=== PATIENT | male | born 2000 | race Caucasian/White ===

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

== ENCOUNTER 2023-10-24 16:59 | Emergency (ER) | payer SELFPAY ==
--- NOTE | 2023-10-24 18:18 | RAD REPORT ---
EXAM DESCRIPTION: CT - [id number] - 10/24/2023 6:05 pm CLINICAL HISTORY: HEADACHE COMPARISON: Head C Spine Mpr Wo Con dated 03/10/2023 TECHNIQUE: Axial 5 mm thick images of the head were obtained. Axial 2 mm thick images of the cervical spine were obtained with sagittal and coronal reconstruction images generated and reviewed. All CT scans are performed using dose optimization technique as appropriate and may include automated exposure control or mA/KV adjustment according to patient size. FINDINGS: CT HEAD WITHOUT CONTRAST: No acute hemorrhage, hydrocephalus or extra-axial collection is identified.No areas of brain edema or midline shift. Low-lying cerebellar tonsils . The paranasal sinuses and mastoids are clear.The calvarium is intact. CT CERVICAL SPINE WITHOUT CONTRAST: No fracture or subluxation.No prevertebral soft tissues swelling is identified. IMPRESSION: No acute intracranial or cervical spine findings.
--- NOTE | 2023-10-24 18:23 | EDPHYS ---
Physician Documentation [facility] Name: Audi Kulkarni Age: 23 yrs Sex: Male : 2000 Arrival Date: 10/24/2023 Time: 16:59 Bed 16 Private MD: ED Physician Khoa Arredondo HPI: 10/23 17:55 This 23 yrs old Male presents to ER via Ambulatory with complaints of Head Injury pepe Without LOC-Adult. 17:55 The patient or guardian reports swelling, tenderness. The complaints affect the top of pepe head, left frontal area and right frontal area. Context of injury: The problem was sustained at work, resulted from a direct blow. Onset: The symptoms/episode began/occurred just prior to arrival, today. Associated signs and symptoms: The patient has no apparent associated signs or symptoms, Loss of consciousness: This patient did not experience any loss of consciousness. Severity of symptoms: At their worst the symptoms were mild, in the emergency department the symptoms are unchanged. The patient has not experienced similar symptoms in the past. Historical: - Allergies: 17:24 Flagyl; db 17:24 Robitussin Cough \T\ Cold CF; db - PMHx: 17:10 None; db - PSHx: 17:24 torn ACL's repair; db - Immunization history:: Adult Immunizations unknown. - Infectious Disease History:: Denies. - Social history:: Smoking status: Patient denies any tobacco usage or history of. - Family history:: not pertinent. ROS: 17:55 Constitutional: Negative for fever, chills, and weight loss, Eyes: Negative for injury, pepe pain, redness, and discharge, ENT: Negative for injury, pain, and discharge, Neck: Negative for injury, pain, and swelling, Cardiovascular: Negative for chest pain, palpitations, and edema, Respiratory: Negative for shortness of breath, cough, wheezing, and pleuritic chest pain, Abdomen/GI: Negative for abdominal pain, nausea, vomiting, diarrhea, and constipation, Back: Negative for injury and pain, : Negative for injury, bleeding, discharge, and swelling, MS/Extremity: Negative for injury and deformity, Skin: Negative for injury, rash, and discoloration, Psych: Negative for depression, anxiety, suicide ideation, homicidal ideation, and hallucinations, Allergy/Immunology: Negative for hives, rash, and allergies, Endocrine: Negative for neck swelling, polydipsia, polyuria, polyphagia, and marked weight changes, Hematologic/Lymphatic: Negative for swollen nodes, abnormal bleeding, and unusual bruising, 17:55 Neuro: Positive for headache, of the top of head, left frontal area and right frontal area, Exam: 17:55 Constitutional: This is a well developed, well nourished patient who is awake, alert, pepe and in no acute distress. Eyes: Pupils equal round and reactive to light, extra-ocular motions intact. Lids and lashes normal. Conjunctiva and sclera are non-icteric and not injected. Cornea within normal limits. Periorbital areas with no swelling, redness, or edema. ENT: Nares patent. No nasal discharge, no septal abnormalities noted. Tympanic membranes are normal and external auditory canals are clear. Oropharynx with no redness, swelling, or masses, exudates, or evidence of obstruction, uvula midline. Mucous membranes moist. Neck: Trachea midline, no thyromegaly or masses palpated, and no cervical lymphadenopathy. Supple, full range of motion without nuchal rigidity, or vertebral point tenderness. No Meningismus. Chest/axilla: Normal chest wall appearance and motion. Nontender with no deformity. No lesions are appreciated. Cardiovascular: Regular rate and rhythm with a normal S1 and S2. No gallops, murmurs, or rubs. Normal PMI, no JVD. No pulse deficits. Respiratory: Lungs have equal breath sounds bilaterally, clear to auscultation and percussion. No rales, rhonchi or wheezes noted. No increased work of breathing, no retractions or nasal flaring. Abdomen/GI: Soft, non-tender, with normal bowel sounds. No distension or tympany. No guarding or rebound. No evidence of tenderness throughout. Back: No spinal tenderness. No costovertebral tenderness. Full range of motion. Skin: Warm, dry with normal turgor. Normal color with no rashes, no lesions, and no evidence of cellulitis. MS/ Extremity: Pulses equal, no cyanosis. Neurovascular intact. Full, normal range of motion. Neuro: Awake and alert, GCS 15, oriented to person, place, time, and situation. Cranial nerves II-XII grossly intact. Motor strength 5/5 in all extremities. Sensory grossly intact. Cerebellar exam normal. Normal gait. Psych: Awake, alert, with orientation to person, place and time. Behavior, mood, and affect are within normal limits. 17:55 Head/face: Noted is contusion, hematoma, swelling, that is moderate, of the top of head, left frontal area and right frontal area, Vital Signs: 17:05 BP 131 / 80; Pulse 100; Resp 16; Temp 98.1; Pulse Ox 98% ; Weight 165.56 kg; Height 6 db ft. 1 in. ; 17:30 BP 122 / 99; Pulse 75; Resp 16; Pulse Ox 98% on R/A; db 17:05 Body Mass Index 48.16 (165.56 kg, 185.42 cm) db [place] Coma Score: 17:55 Eye Response: spontaneous(4). Motor Response: obeys commands(6). Verbal Response: pepe oriented(5). Total: 15. 17:57 Eye Response: spontaneous(4). Motor Response: obeys commands(6). Verbal Response: pepe oriented(5). Total: 15. MDM: 17:08 Patient medically screened. pepe 17:57 Differential diagnosis: Contusion of Hematoma on head. Data reviewed: vital signs, pepe nurses notes, radiologic studies, CT scan. Consideration of Admission/Observation Escalation of care including admission/observation considered. I considered the following discharge prescriptions or medication management in the emergency department Medications were administered in the Emergency Department. See MAR. Test considered but Not performed: Labs: no labs. 10/23 17:35 Order name: CT Head C Spine; Complete Time: 18:20 pepe 10/23 17:35 Order name: Ice pack; Complete Time: 17:54 pepe Administered Medications: No medications were administered Disposition Summary: 10/24/23 18:22 Discharge Ordered Notes: Location: Home pepe Problem: new pepe Symptoms: have improved pepe Condition: Stable pepe Diagnosis - Unspecified injury of head, initial encounter pepe Followup: pepe - With: Private Physician - When: 2 - 3 days - Reason: Recheck today's complaints, Continuance of care, Re-evaluation by your physician Followup: pepe - With: Jordan Felix MD - When: 2 - 3 days - Reason: Recheck today's complaints, Re-evaluation by your physician Discharge Instructions: - Discharge Summary Sheet pepe - Contusion pepe - Head Injury, Adult pepe - Contusion, [id number] pepe - Head Injury, Adult, [id number] pepe Forms: - Medication Reconciliation Form pepe - Antibiotic Education pepe - Prescription Opioid Use pepe - Patient Portal Instructions pepe - Leadership Thank You Letter pepe - Work release form db Prescriptions: - Ibuprofen 600 mg Oral tablet - take 1 tablet ORAL route every 6 hours As needed take with food; 20 tablet; [facility] Refills: 0, Product Selection Permitted Signatures: Dispatcher [employer] EDKhoa Ramos MD MD cha Benton, Danielle, RN RN db
--- NOTE | 2023-10-24 18:23 | ER ---
Nurse's Notes [facility] Name: Audi Kulkarni Age: 23 yrs Sex: Male : 2000 Arrival Date: 10/24/2023 Time: 16:59 Bed 16 Private MD: Diagnosis: Unspecified injury of head, initial encounter Presentation: 10/23 17:05 Chief complaint: Chief complaint: Patient states: STATES OBJECT FELL ON HEAD AT WORK. db STATES WAS APPROXIMATELY 4 LBS. DENIES LOC. 17:05 Coronavirus screen: Vaccine status: At this time, the client does not indicate any db symptoms associated with coronavirus-19. Ebola Screen: Patient negative for fever greater than or equal to 101.5 degrees Fahrenheit, and additional compatible Ebola Virus Disease symptoms Patient denies exposure to infectious person. Patient denies travel to an Ebola-affected area in the 21 days before illness onset. No symptoms or risks identified at this time. Initial Sepsis Screen: Does the patient meet any 2 criteria? No. Patient's initial sepsis screen is negative. Does the patient have a suspected source of infection? No. Patient's initial sepsis screen is negative. Risk Assessment: Do you want to hurt yourself or someone else? Patient reports no desire to harm self or others. Onset of symptoms was October 24, 2023. 17:05 Method Of Arrival: Ambulatory db 17:05 Acuity: MARLON 4 db Triage Assessment: 17:10 General: Appears in no apparent distress. comfortable, Behavior is calm, cooperative. db Pain: Complains of pain in head and scalp. Neuro: Level of Consciousness is awake, alert, obeys commands, Oriented to person, place, time, situation, Pupils are PERRLA. Cardiovascular: No deficits noted. Respiratory: Airway is patent Respiratory effort is even, unlabored, Respiratory pattern is regular, symmetrical. GI: No deficits noted. No signs and/or symptoms were reported involving the gastrointestinal system. : No deficits noted. No signs and/or symptoms were reported regarding the genitourinary system. Derm: No deficits noted. No signs and/or symptoms reported regarding the dermatologic system. Historical: - Allergies: 17:24 Flagyl; db 17:24 Robitussin Cough \T\ Cold CF; db - PMHx: 17:10 None; db - PSHx: 17:24 torn ACL's repair; db - Immunization history:: Adult Immunizations unknown. - Infectious Disease History:: Denies. - Social history:: Smoking status: Patient denies any tobacco usage or history of. - Family history:: not pertinent. Screenin:55 [facility] ED Fall Risk Assessment (Adult) History of falling in the last 3 months, db including since admission No falls in past 3 months (0 pts) Confusion or Disorientation No (0 pts) Intoxicated or Sedated No (0 pts) Impaired Gait No (0 pts) Mobility Assist Device Used No (0 pt) Altered Elimination No (0 pt) Score/Fall Risk Level 0 - 2 = Low Risk Oriented to surroundings, Maintained a safe environment. Abuse screen: Denies threats or abuse. Denies injuries from another. Nutritional screening: No deficits noted. Tuberculosis screening: No symptoms or risk factors identified. Assessment: 17:10 Reassessment: Patient appears in no apparent distress at this time. Patient and/or db family updated on plan of care and expected duration. Pain level reassessed. Patient is alert, oriented x 3, equal unlabored respirations, skin warm/dry/pink. SEE TRIAGE FOR INITIAL ASSESSMENT. 17:55 Reassessment: Patient appears in no apparent distress at this time. No changes from db previously documented assessment. Patient and/or family updated on plan of care and expected duration. Pain level reassessed. Patient is alert, oriented x 3, equal unlabored respirations, skin warm/dry/pink. 18:43 Reassessment: Patient appears in no apparent distress at this time. Patient and/or db family updated on plan of care and expected duration. Pain level reassessed. Patient is alert, oriented x 3, equal unlabored respirations, skin warm/dry/pink. Patient states feeling better. Patient states symptoms have improved. Vital Signs: 17:05 BP 131 / 80; Pulse 100; Resp 16; Temp 98.1; Pulse Ox 98% ; Weight 165.56 kg; Height 6 db ft. 1 in. ; 17:30 BP 122 / 99; Pulse 75; Resp 16; Pulse Ox 98% on R/A; db 17:05 Body Mass Index 48.16 (165.56 kg, 185.42 cm) db [place] Coma Score: 17:55 Eye Response: spontaneous(4). Motor Response: obeys commands(6). Verbal Response: pepe oriented(5). Total: 15. 17:57 Eye Response: spontaneous(4). Motor Response: obeys commands(6). Verbal Response: pepe oriented(5). Total: 15. ED Course: 17:03 Patient arrived in ED. mg5 17:08 Khoa Arredondo MD is Attending Physician. pepe 17:10 Arm band placed on Patient placed in an exam room. db 17:12 Eloies Potter, RN is Primary Nurse. db 17:24 Triage completed. db 17:54 Pulse ox on. NIBP on. Pillow given. Ice pack to injury. db 18:07 CT Head C Spine In Process Unspecified. EDMS 18:21 Jordan Felix MD is Referral Physician. pepe 18:43 Patient has correct armband on for positive identification. Bed in low position. Call db light in reach. Side rails up X 1. Provided Education on: DISCHARGE AND FOLLOWUP. 18:43 No provider procedures requiring assistance completed. Patient did not have IV access db during this emergency room visit. Administered Medications: No medications were administered Medication: 18:43 VIS not applicable for this client. db Outcome: 18:22 Discharge ordered by . pepe 18:43 Discharged to home ambulatory, db 18:43 Condition: stable 18:43 Discharge instructions given to patient, Instructed on discharge instructions, follow up and referral plans. Prescriptions given X 1, 18:44 Patient left the ED. db Signatures: Dispatcher [employer] EDNJ Khoa Arredondo MD MD cha Benton, Danielle, RN RN db Lacey Stallings mg5 Corrections: (The following items were deleted from the chart) 17:24 17:05 Chief complaint: db db
[2023-10-24 18:53] VITALS: TEMP 98.1; O2SAT 98
[2023-10-24 18:56] VITALS: BP 122/99
== END 2023-10-24 18:44 | disposition home or self-care (01) ==
LOC: ER 16:59
DX: S00.83XA Contusion of other part of head, initial encounter (principal)
CPT/HCPCS: 70450; 72125; 99283

== ENCOUNTER 2023-12-18 20:54 | Emergency (ER) | payer SELFPAY ==
--- OUTSIDE RECORDS SUMMARY | 2023-12-18 20:57 | XMS REPORT | Continuity of Care Document ---
Author Name Unknown Address [address] [facility] [address] [id number] [facility] thconnect Address [address] [facility] [address] [place] [address] Care Team Providers Care Machine Shop Helper Name Role Phone PCP, PATIENT DOES NOT HAVE A Primary Care Physic KIP Garland Attending Clinician Unavail able KIP KIRBY Attending Clinician Unavail able Kip Kirby MD Attending Clinician [phone] KIP KIRBY Admitting Clinician Unavail able Payers Payer Name Policy Type Policy Number Effective Date Expirati on Date Source [facility] [id number] 2023 00:00:00 Allergies, Adverse Reactions, Alerts Allergy Name Allergy Type Status Severity Reaction(s) Onset Date Inactive Date Treating Clinician Comments Source Metronid azole Propensi ty to adverse reaction s Active Hives 0 10-25 00:00: 00 [facility] Robituss in Cough Calmers Propensi ty to adverse reaction s Active Hives 0 - 00:00: 00 [facility] METRONID AZOLE DRUG INGREDI Active Hives 0 - 00:00: 00 [facility] ROBITUSS IN COUGH CALMERS DRUG Active Hives 0 10-25 00:00: 00 [facility] NO KNOWN ALLERGIE S Drug Class Active [facility] Social History Social Habit Start Date Stop Date Quantity Comments Source Sexual orientation U [facility] Sex assigned at 2000 00:00:00 2000 00:00:00 [facility] Smoking Status Start Date Stop Date Source Tobacco smoking consumption unknown [facility] Vital Signs Vital Name Observation Time Observation Value Comments Junior montoya Systolic blood pressure 2023-10-26 20:00:00 143 mm[Hg] [facility] Diastolic blood pressure 2023-10-26 20:00:00 78 mm[Hg] [facility] Heart rate 2023-10-26 20:00:00 89 /min [facility] Body temperature 2023-10-26 20:00:00 36.67 Lluvia [facility] Respiratory rate 2023-10-26 20:00:00 14 /min [facility] Oxygen saturation in Arterial blood by Pulse oximetry 2023-10-26 20:00:00 98 /min [facility] Body height 2023-10-26 18:24:[address] [facility] Body weight 2023-10-26 18:24:[address] [facility] BMI 2023-10-26 18:24:00 49.50 kg/m2 [facility] Procedures Procedure Date / Time Performed Performing Clinicia n Source CT HEAD WO CONTRAST 2023-10-26 19:31:02 Kip Kirby [facility] Encounters Start Date/Time End Date/Time Encounter Type Admission Type Attending Clinicians Care Facility Care Department Encounter ID Source 2023-10-26 13:27:00 2023-10-26 15:16:00 Emergency X KIP KIRBY [facility] ERT [id number] [facility] 2023-10-26 13:27:00 2023-10-26 15:16:00 Emergency Kip Kirby [facility] [id number] [facility] Results Test Description Test Time Test Comments Results Result Comments Source CT HEAD WO CONTRAST 19:47:54 CT HEAD WO CONTRAST HISTORY: Male 23 years Head trauma, abnormal mental status (Age 18-64y) COMPARISON: None TECHNIQUE: Routine CT head without contrast FINDINGS: The ventricles and cerebral sulci are normal in caliber and configuration.No hydrocephalus, midline shift or pathological extra-axial fluidcollection is present. The basal cisterns are unremarkable. No acute intracranial hemorrhage or mass effect is present. The patel-whitematter differentiation is preserved. No significant parenchymal attenuationabnormality is present. The calvarium and skull base are unremarkable. The mastoid air cells andvisualized paranasal air sinuses are clear. [facility] Notes Date/Time Note Provider Source 2023-10-26 15:15:18 Pt given printed and verbal discharge instructions regarding injury of head initial encounter and concussion without loc, encouraged hydration, Discussed ibuprofen and to take with food to avoid GI distress. Pt verbalized understanding of instructions, pt awake alert oriented, resp reg unlabored, skin w/d, color appropriate for race, moves all ext well,pt encouraged to follow up with pcp Advised to seek medical attention for new/prolonged/worsening of symptoms, No adverse reaction to meds given in ER noted upon discharge Awake, alert oriented, resp reg unlabored, skin w/d, pt leaving amb with steady gait, in no apparent distress, Loretta Elliott RN [facility] 2023-10-26 13:22:05 Patient arrived ambulatory c/oo of an object that fell on his head Thursday went to ER [facility] which cleared him and said if the pain did not get better to go to the ER. Complaining of pain on top of his head where the object landed. [facility] 2023-10-26 13:15:00 [facility] Emergency Department Note Patient Name: Terence Oviedo Date of : 2000 23 year old male Treatment Room: 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 No n/v. Reportedly seen at OSH but those records not available. History provided by: Patient Past Medical History/Immunizations: No past medical history on file. Tetanus received in last 5 years: No Childhood immunizations: Up-to-date Allergies: Allergies Allergen Reactions Flagyl [Metronidazole] Hives Robitussin Cough Calmers Hives Past Social History: Substance & Sexual Activity No substance use or sexual activity history on file. Past Surgical History: No past surgical history on file. Review of Systems: Review of Systems Constitutional: Negative for activity change, appetite change, chills, diaphoresis and fatigue. HENT: Negative for congestion, ear discharge, ear pain, facial swelling, mouth sores, sore throat, trouble swallowing and voice change. Eyes: Negative for photophobia, discharge, redness, itching and visual disturbance. Respiratory: Negative for apnea, cough, choking, chest tightness, shortness of breath, wheezing and stridor. Breasts: Negative for discharge and mass. Cardiovascular: Negative for chest pain, palpitations and leg swelling. Gastrointestinal: Negative for abdominal distention, constipation, diarrhea, nausea and vomiting. Genitourinary: Negative for bladder incontinence, dysuria, frequency, hematuria, flank pain and difficulty urinating. Musculoskeletal: Negative for arthralgias, back pain, gait problem, joint swelling, myalgias, neck pain and neck stiffness. Skin: Negative for color change, pallor, rash and wound. Neurological: Positive for headaches. Negative for dizziness, syncope, facial asymmetry, speech difficulty, weakness, light-headedness and numbness. Psychiatric/Behavioral: Negative for agitation, behavioral problems, confusion and self-injury. Hematological: Negative for adenopathy, cold intolerance and heat intolerance. Does not bruise/bleed easily. Endocrine: Negative for cold intolerance, heat intolerance, polydipsia and polyphagia. Physical Exam: ED Triage Vitals [10/26/23 1324] Weight 165.6 kg (365 lb) Actual or estimated Estimated by patient/family report Height 1.829 m (6') BP (!) 151/95 Pulse 94 Resp 16 Temp 37.1 ?C (98.8 ?F) Temp src SpO2 97 % Measured on Room air Physical Exam Constitutional: General: He is not in acute distress. Appearance: He is well-developed. He is not diaphoretic. HENT: Head: Normocephalic and atraumatic. Right Ear: External ear normal. Left Ear: External ear normal. Mouth/Throat: Pharynx: No oropharyngeal exudate. Eyes: General: No scleral icterus. Right eye: No discharge. Left eye: No discharge. Extraocular Movements: Extraocular movements intact. Conjunctiva/sclera: Conjunctivae normal. Pupils: Pupils are equal, round, and reactive to light. Neck: Thyroid: No thyromegaly. Trachea: No tracheal deviation. Cardiovascular: Rate and Rhythm: Normal rate and regular rhythm. Heart sounds: Normal heart sounds. Pulmonary: Effort: Pulmonary effort is normal. No respiratory distress. Breath sounds: Normal breath sounds. No stridor. No wheezing. Abdominal: General: Bowel sounds are normal. There is no distension. Palpations: Abdomen is soft. Tenderness: There is no abdominal tenderness. Musculoskeletal: General: No tenderness or deformity. Normal range of motion. Cervical back: Normal range of motion and neck supple. Lymphadenopathy: Cervical: No cervical adenopathy. Skin: General: Skin is warm and dry. Coloration: Skin is not pale. Findings: No erythema or rash. Neurological: Mental Status: He is alert and oriented to person, place, and time. Cranial Nerves: No cranial nerve deficit. Sensory: No sensory deficit. Motor: No abnormal muscle tone. Coordination: Coordination normal. Psychiatric: Behavior: Behavior normal. Thought Content: Thought content normal. Judgment: Judgment normal. Radiology: CT HEAD WO CONTRAST Final Result CT HEAD WO CONTRAST HISTORY: Male 23 years Head trauma, abnormal mental status (Age 18-64y) COMPARISON: None TECHNIQUE: Routine CT head without contrast FINDINGS: The ventricles and cerebral sulci are normal in caliber and configuration. No hydrocephalus, midline shift or pathological extra-axial fluid collection is present. The basal cisterns are unremarkable. No acute intracranial hemorrhage or mass effect is present. The patel-white matter differentiation is preserved. No significant parenchymal attenuation abnormality is present. The calvarium and skull base are unremarkable. The mastoid air cells and visualized paranasal air sinuses are clear. IMPRESSION Normal CT head Lab Results: Lab Results - No data to display EKG: If EKG completed, see Procedure Note. Orders and Treatments: Orders Placed This Encounter Procedures CT HEAD WO CONTRAST No orders of the defined types were placed in this encounter. First Provider Eval: ED Events Date/Time Event User Comments 10/26/23 1321 Medical Screening Begins KIP KIRBY MD -- 10/26/23 1321 First Provider Evaluation KIP KIRBY MD -- ED COURSE Diagnosis/Impression as of 10/26/23 1459 Injury of head, initial encounter Concussion without loss of consciousness, initial encounter Procedures: Procedures MDM: Medical Decision Making Minor head injury w/out external findings. Pt reports worsening symptoms so CT scan done, neg. No indication of ICH, skull fx, hydrocephalus. Possible mild TBI w/ supportive care indicated. D/w pt results, rec plan of care and f/u, and red flags for return Amount and/or Complexity of Data Reviewed Radiology: ordered. Flowsheet Documentation: Disposition/Condition: ED Disposition ED Disposition Disch - Home Condition Stable Comment -- Discharge Medications: Patient's Medications No medications on file Follow-up: Electronically signed by: Kip Kirby MD 10/26/23 1459 T [facility]
[2023-12-18] MEDS ORDERED: METOCLOPRAMIDE 10 MG/2mL INJ ONE (22:04)
[2023-12-18] MEDS ORDERED: KETOROLAC 30 MG/ML INJ ONE (22:04)
[2023-12-18] MEDS ORDERED: DIPHENHYDRAMINE 50 MG/ML VIAL ONE (22:04)
[2023-12-18 22:08] LABS: Absolute Basophils 0.1 K/uL (0-0.5); Absolute Eosinophils 0.1 K/uL (0-0.5); Absolute Lymphocytes (CBC) 2.6 K/uL (0.7-4.9); Absolute Monocytes 0.7 K/uL (0.1-1.3); Absolute Neutrophil 5.2 K/uL (1.8-8.0); Basophils % 0.7 % (0-1.3); Eosinophils % 1.3 % (0-4.4); Hematocrit 42.1 % (39.6-49.0); Hemoglobin 14.5 g/dL (13.6-17.9); Lymphocytes % 29.5 % (15.3-44.8); MCH 28.4 pg (27.0-35.0); MCHC 34.4 g/dL (32.0-36.0); MCV 82.4 fL (80-100); MPV 8.5 fL (7.6-11.3); Monocytes % 8.1 % (3.3-12.3); Neutrophils % 60.4 % (41.7-73.7); Nucleated Red Blood Cells % 0.3 % (0-0); Platelets 267 thou/uL (152-406); RBC Red Blood Cell Count 5.11 M/uL (4.33-5.43); Red Cell Distribution Width 13.5 % (12.1-15.2)
[2023-12-18 22:26] LABS: Anion Gap 7.8 mEq/L (5.0-15.0); Potassium 3.8 mEq/L (3.5-5.1); Troponin High Sensitivity 4.9 pg/mL (<58.9)
--- NOTE | 2023-12-18 22:30 | RAD REPORT ---
EXAM: CT brain without contrast HISTORY: Headache COMPARISON: October 2023 TECHNIQUE: Multiple contiguous axial images were obtained and a CT of the brain without contrast.. Sagittal and coronal reconstruction performed. Automated exposure control, adjustment of the mA and/or kV according to patient size, and/or iterative reconstruction. Unless otherwise specified, incidental f indings do not require dedicated imaging follow-u FINDINGS: An intracranial bleed is not seen Ventricles are normal caliber No extra-axial fluid collection noted No significant hypodensity within the brain Cerebellar tonsillar ectopia is present No fluid within the visualized sinuses or mastoids noted. IMPRESSION: Cerebellar tonsillar ectopia No acute intracranial abnormality noted. If the patient's symptoms persist MRI of the brain would be recommended.
--- NOTE | 2023-12-18 23:11 | RAD REPORT ---
EXAM DESCRIPTION: Chest Single View CLINICAL HISTORY: 23 years Male, htn TECHNIQUE: 1 view (Single frontal view of the chest) COMPARISON: None. FINDINGS: LINES AND TUBES: None. CARDIOVASCULAR STRUCTURES: Normal heart size. No pulmonary venous congestion. LUNGS: No confluent areas of acute consolidation. PLEURA: No layering pleural effusions. No pneumothorax. BONES: No acute osseous abnormality of the thorax. IMPRESSION: 1. No acute cardiopulmonary disease. Electronically signed by: Ac Spencer MD 12/18/2023 10:52 PM CDT N Due to temporary technical issues with the PACS/[employer] reporting system, reports are being lacie d by the in-house radiologist without review as a courtesy to ensure prompt reporting the interpreting radiologist is fully responsible for the content of the report. Transcribed Date/Time: 12/18/2023 11:11 PM
--- NOTE | 2023-12-18 23:48 | EDPHYS ---
Physician Documentation [facility] Name: Audi Kulkarni Age: 23 yrs Sex: Male : 2000 Arrival Date: 12/18/2023 Time: 20:54 Bed 15 Private MD: ED Physician Cameron Anguiano HPI: 12/18 02:03 This 23 yrs old Male presents to ER via Ambulatory with complaints of High Blood sb4 Pressure, Headache. 02:03 Patient reports headache for the past few days that is not improving with Tylenol or sb4 ibuprofen. He states that he has been more stressed than usual. States that one of his family members recommended he check his blood pressure today given his persistent headache and he noted it to be elevated- 160s/100s-and presented to the ED for further management. He denies any prior history/diagnosis of hypertension. Denies any dizziness, blurry vision, chest pain, or shortness of. Historical: - Allergies: 12/17 21:27 Flagyl; tm6 21:27 Robitussin Cough \T\ Cold CF; tm6 - Home Meds: 21:27 None [Active]; tm6 - PSHx: 21:27 torn ACL's repair; Tonsillectomy; Adenoid excision; tm6 - Immunization history:: Client reports having NOT received the Covid vaccine. - Infectious Disease History:: Denies. - Social history:: Smoking status: Patient denies any tobacco usage or history of. Patient/guardian denies using alcohol. ROS: 12/18 02:03 Constitutional: Negative for fever, chills, and weight loss, sb4 Neuro: Positive for headache, All other systems are negative, Exam: 02:03 Constitutional: This is a well developed, well nourished patient who is awake, alert, sb4 and in no acute distress. Head/Face: Normocephalic, atraumatic. Eyes: Extra-ocular motions intact. Periorbital areas with no swelling, redness, or edema. ENT: Mucous membranes moist. Cardiovascular: Regular rate and rhythm with a normal S1 and S2. Respiratory: Lungs have equal breath sounds bilaterally, clear to auscultation and percussion. No rales, rhonchi or wheezes noted. No increased work of breathing, no retractions or nasal flaring. Abdomen/GI: Soft, non-tender, no distension. Skin: Warm, dry with normal turgor. Normal color with no rashes, no lesions, and no evidence of cellulitis. Neuro: Awake and alert, GCS 15, oriented to person, place, time, and situation. Motor strength 5/5 in all extremities. Sensory grossly intact. Vital Signs: 12/17 21:25 BP 153 / 97; Pulse 98; Resp 19; Temp 97.8(O); Pulse Ox 100% on R/A; MAP 113 mmHg; tm6 Weight 170.1 kg; Height 6 ft. 1 in. ; Pain 10/10; 22:22 BP 153 / 94; Pulse 91; Resp 18; Pulse Ox 99% ; cp4 23:44 BP 138 / 63; Pulse 63; Resp 18; Pulse Ox 100% ; cp4 21:25 Body Mass Index 49.47 (170.10 kg, 185.42 cm) tm6 21:25 Pain Scale: Adult tm6 MDM: 21:33 Patient medically screened. sb4 12/18 02:05 Data reviewed: vital signs, nurses notes, lab test result(s), EKG, radiologic studies, sb4 and as a result, I will discharge patient. Counseling: I had a detailed discussion with the patient and/or guardian regarding the historical points, exam findings, and any diagnostic results supporting the discharge/admit diagnosis, the presence of at least one elevated blood pressure reading (>120/80) during this emergency department visit, lab results, radiology results, the need for outpatient follow up, for definitive care, to return to the emergency department if symptoms worsen or persist or if there are any questions or concerns that arise at home. 12/17 21:34 Order name: Basic Metabolic Panel; Complete Time: 22:27 sb4 12/17 21:34 Order name: CBC with Diff; Complete Time: 22:16 sb4 12/17 21:34 Order name: Troponin HS; Complete Time: 22:27 sb4 12/17 21:34 Order name: XRAY Chest (1 view) sb4 12/17 21:34 Order name: Head Brain Wo Cont CT; Complete Time: 22:31 sb4 12/17 21:34 Order name: EKG; Complete Time: 21:34 sb4 12/17 21:34 Order name: Cardiac monitoring; Complete Time: 22:10 sb4 12/17 21:34 Order name: EKG - Nurse/Tech; Complete Time: 22:10 sb4 12/17 21:34 Order name: IV Saline Lock; Complete Time: 22:10 sb4 12/17 21:34 Order name: Labs collected and sent; Complete Time: 22:10 sb4 12/17 21:34 Order name: O2 Per Protocol; Complete Time: 22:10 sb4 12/17 21:34 Order name: O2 Sat Monitoring; Complete Time: 22:10 sb4 EC/11 23:49 Rate is 80 beats/min. Rhythm is regular, Normal Sinus Rhythm. DC interval is normal at sb4 170 msec. QRS interval is normal at 96 msec. QT interval is normal at 360 msec. No Q waves. T waves are Normal. No ST changes noted. Clinical impression: Normal ECG and No evidence of ischemia. Interpreted by me. Reviewed by me. Administered Medications: 22:07 Drug: metoCLOPramide IVP 10 mg IVP once; over 1 to 2 minutes Route: IVP; Site: right cp4 antecubital; 22:40 Follow up: Response: No adverse reaction cp4 22:07 Drug: diphenhydrAMINE IVP 25 mg IVP once Route: IVP; Site: right antecubital; cp4 22:40 Follow up: Response: No adverse reaction cp4 22:08 Drug: Ketorolac IVP 30 mg IVP once Route: IVP; Site: right antecubital; cp4 22:40 Follow up: Response: No adverse reaction; Pain is decreased cp4 Disposition: 12/18 05:43 Co-signature as Attending Physician, Cameron Anguiano MD I agree with the assessment sp4 and plan of care. I reviewed the patient's care provided by the Advanced Practice Provider and agree with the diagnosis and treatment plan. Disposition Summary: 12/18/23 23:47 Discharge Ordered Notes: Location: Home sb4 Problem: new sb4 Symptoms: have improved sb4 Condition: Stable sb4 Diagnosis - Headache sb4 - Elevated blood-pressure reading, without diagnosis of hypertension sb4 Followup: sb4 - With: Private Physician - When: 1 week - Reason: Recheck today's complaints, Re-evaluation by your physician Discharge Instructions: - Discharge Summary Sheet sb4 - How to Take Your Blood Pressure, [id number] sb4 Forms: - Work release form sb4 - Patient Portal Instructions sb4 - Leadership Thank You Letter sb4 Signatures: Dispatcher [employer] Negra Matthews, EVAN GORDON sb4 Cameron Anguiano MD MD sp4 Radha Gan cp4 Aaron Corrigan RN RN tm6
--- NOTE | 2023-12-18 23:48 | ER ---
Nurse's Notes [facility] Name: Audi Kulkarni Age: 23 yrs Sex: Male : 2000 Arrival Date: 12/18/2023 Time: 20:54 Bed 15 Private MD: Diagnosis: Headache;Elevated blood-pressure reading, without diagnosis of hypertension Presentation: 12/17 21:26 Chief complaint: Patient states: headache started on Thursday morning, been tylenol tm6 and ibuprofen, but it hasn't helped. About an hour ago I took my blood pressure and it was high. Coronavirus screen: Client denies travel out of the [place] in the last 14 days. Ebola Screen: Patient negative for fever greater than or equal to 101.5 degrees Fahrenheit, and additional compatible Ebola Virus Disease symptoms Patient denies exposure to infectious person. Patient denies travel to an Ebola-affected area in the 21 days before illness onset. No symptoms or risks identified at this time. Initial Sepsis Screen: Does the patient meet any 2 criteria? No. Patient's initial sepsis screen is negative. Does the patient have a suspected source of infection? No. Patient's initial sepsis screen is negative. Risk Assessment: Do you want to hurt yourself or someone else? Patient reports no desire to harm self or others. Onset of symptoms was December 16, 2023. 21:26 Method Of Arrival: Ambulatory tm6 21:26 Acuity: MARLON 3 tm6 Triage Assessment: 21:28 Headache History: The patient has had previous headaches. General: Appears in no tm6 apparent distress. Behavior is calm, cooperative. Pain: Complains of pain in head Pain currently is 8 out of 10 on a pain scale. Pain began 2-3 days ago. Also complains of no other associated symptoms. EENT: No signs and/or symptoms were reported regarding the EENT system. Neuro: Level of Consciousness is awake, alert, obeys commands, Oriented to person, place, time, situation, Reports headache since Thursday. Cardiovascular: Patient's skin is warm and dry. Respiratory: Airway is patent Respiratory effort is even, unlabored, Respiratory pattern is regular, symmetrical. GI: No signs and/or symptoms were reported involving the gastrointestinal system. Abdomen is round. : No signs and/or symptoms were reported regarding the genitourinary system. Derm: No signs and/or symptoms reported regarding the dermatologic system. Musculoskeletal: No signs and/or symptoms reported regarding the musculoskeletal system. Historical: - Allergies: 21: Flagyl; tm6 21:27 Robitussin Cough \T\ Cold CF; tm6 - Home Meds: 21: None [Active]; tm6 - PSHx: 21:27 torn ACL's repair; Tonsillectomy; Adenoid excision; tm6 - Immunization history:: Client reports having NOT received the Covid vaccine. - Infectious Disease History:: Denies. - Social history:: Smoking status: Patient denies any tobacco usage or history of. Patient/guardian denies using alcohol. Screenin:08 [facility] ED Fall Risk Assessment (Adult) History of falling in the last 3 months, cp4 including since admission No falls in past 3 months (0 pts) Confusion or Disorientation No (0 pts) Intoxicated or Sedated No (0 pts) Impaired Gait No (0 pts) Mobility Assist Device Used No (0 pt) Altered Elimination No (0 pt) Score/Fall Risk Level 0 - 2 = Low Risk Oriented to surroundings, Maintained a safe environment, Assessed \T\ reinforced patient's understanding of fall precautions, Hourly rounding (assess needs \T\ fall precautionary measures) done. Abuse screen: Denies threats or abuse. Nutritional screening: No deficits noted. Tuberculosis screening: No symptoms or risk factors identified. Assessment: 22:08 General: Appears in no apparent distress. comfortable, Behavior is calm, cooperative, cp4 appropriate for age. Pain: Complains of pain in head Pain does not radiate. Pain currently is 10 out of 10 on a pain scale. Neuro: Level of Consciousness is awake, alert, obeys commands, Oriented to person, place, time, situation. Cardiovascular: Patient's skin is warm and dry. Respiratory: Airway is patent Respiratory effort is even, unlabored. GI: No deficits noted. : No deficits noted. EENT: No deficits noted. Derm: No deficits noted. Musculoskeletal: No deficits noted. 23:00 Reassessment: Patient appears in no apparent distress at this time. Patient and/or cp4 family updated on plan of care and expected duration. Pain level reassessed. Patient is alert, oriented x 3, equal unlabored respirations, skin warm/dry/pink. Vital Signs: 21:25 BP 153 / 97; Pulse 98; Resp 19; Temp 97.8(O); Pulse Ox 100% on R/A; MAP 113 mmHg; tm6 Weight 170.1 kg; Height 6 ft. 1 in. ; Pain 10/10; 22:22 BP 153 / 94; Pulse 91; Resp 18; Pulse Ox 99% ; cp4 23:44 BP 138 / 63; Pulse 63; Resp 18; Pulse Ox 100% ; cp4 21:25 Body Mass Index 49.47 (170.10 kg, 185.42 cm) tm6 21:25 Pain Scale: Adult tm6 ED Course: 20:55 Patient arrived in ED. am2 20:56 [facility] sb4 20:56 Cameron Anguiano MD is Attending Physician. sb4 21:27 Triage completed. tm6 21:27 Arm band placed on left wrist. tm6 21:44 Radha Gan is Primary Nurse. cp4 22:08 Bed in low position. Call light in reach. Side rails up X2. cp4 22:08 No provider procedures requiring assistance completed. Inserted saline lock: 20 gauge cp4 in right antecubital area, using aseptic technique. Blood collected. Flushed with 10 mL NS. 22:10 Initial lab(s) drawn, by me, sent to lab. EKG done, by ED staff, reviewed by Negra Yancey PA-C. 22:22 Head Brain Wo Cont CT In Process Unspecified. EDMS 22:38 XRAY Chest (1 view) In Process Unspecified. EDMS 12/18 00:06 Provided Education on: high blood pressure. cp4 00:06 intact, bleeding controlled, No redness/swelling at site. Pressure dressing applied. cp4 Administered Medications: 12/17 22:07 Drug: metoCLOPramide IVP 10 mg IVP once; over 1 to 2 minutes Route: IVP; Site: right cp4 antecubital; 22:40 Follow up: Response: No adverse reaction cp4 22:07 Drug: diphenhydrAMINE IVP 25 mg IVP once Route: IVP; Site: right antecubital; cp4 22:40 Follow up: Response: No adverse reaction cp4 22:08 Drug: Ketorolac IVP 30 mg IVP once Route: IVP; Site: right antecubital; cp4 22:40 Follow up: Response: No adverse reaction; Pain is decreased cp4 Medication: 22:08 VIS not applicable for this client. cp4 Outcome: 23:47 Discharge ordered by MD. vázquez 12/18 00:06 Discharged to home ambulatory, cp4 Condition: stable Discharge instructions given to patient, Instructed on discharge instructions, follow up and referral plans. Demonstrated understanding of instructions, follow-up care, 00:07 Patient left the ED. cp4 Signatures: Dispatcher [employer] EDLatanya Segura Sophia, PA-C PA-C flash4 Radha Gan cp4 Aaron Corrigan RN RN tm6
[2023-12-19 04:42] VITALS: TEMP 98.3
[2023-12-19 04:45] VITALS: BP 179/85; O2SAT 98
== END 2023-12-19 00:07 | disposition home or self-care (01) ==
LOC: ER 20:54
DX: R51.9 Headache, unspecified (principal); R03.0 Elevated blood-pressure reading, without diagnosis of hypertension
CPT/HCPCS: 36415; 70450; 71045; 80048; 84484; 85025; 93005; J1200; J2765

== ENCOUNTER 2024-01-05 11:58 | Emergency (ER) | payer SELFPAY ==
--- OUTSIDE RECORDS SUMMARY | 2024-01-05 12:01 | XMS REPORT | Continuity of Care Document ---
Author Name Unknown Address [address] [place] [address] [facility] thconnect Address [address] [place] [address] Care Team Providers Care Director Of Promotions Name Role Phone PCP, PATIENT DOES NOT HAVE A Primary Care Physic toya Unavailable KIP KIRBY Attending Clinician Unavail able KIP KIRBY Attending Clinician Unavail able Kip Kirby MD Attending Clinician KIP KIRBY Admitting Clinician Unavail able Payers Payer Name Policy Type Policy Number Effective Date Expirati on Date Source [facility] [id number] 2023 00:00:00 Allergies, Adverse Reactions, Alerts Allergy Name Allergy Type Status Severity Reaction(s) Onset Date Inactive Date Treating Clinician Comments Source Metronid azole Propensi ty to adverse reaction s Active Hives 0 10-25 00:00: 00 [facility] Robituss in Cough Calmers Propensi ty to adverse reaction s Active Hives 0 10-25 00:00: 00 [facility] METRONID AZOLE DRUG INGREDI Active Hives 0 10-25 00:00: 00 [facility] ROBITUSS IN COUGH CALMERS DRUG Active Hives 0 10-25 00:00: 00 [facility] NO KNOWN ALLERGIE S Drug Class Active [facility] Social History Social Habit Start Date Stop Date Quantity Comments Source Sexual orientation [facility] Sex assigned at 2000 00:00:00 2000 00:00:00 [facility] Smoking Status Start Date Stop Date Source Tobacco smoking consumption unknown [facility] Vital Signs Vital Name Observation Time Observation Value Comments Junior montoya Systolic blood pressure 2023-10-26 20:00:00 143 mm[Hg] [facility] Diastolic blood pressure 2023-10-26 20:00:00 78 mm[Hg] [facility] Heart rate 2023-10-26 20:00:00 89 /min [facility] Body temperature 2023-10-26 20:00:00 36.67 Lluvia [facility] Respiratory rate 2023-10-26 20:00:00 14 /min [facility] Oxygen saturation in Arterial blood by Pulse oximetry 2023-10-26 20:00:00 98 /min [facility] Body height 2023-10-26 18:24:00 182.9 cm [facility] Body weight 2023-10-26 18:24:00 165.563 kg [facility] BMI 2023-10-26 18:24:00 49.50 kg/m2 [facility] Procedures Procedure Date / Time Performed Performing Clinicia n Source CT HEAD WO CONTRAST 2023-10-26 19:31:02 Kip Kirby [facility] Encounters Start Date/Time End Date/Time Encounter Type Admission Type Attending [facility] Care Facility Care Department Encounter ID Source 2023-10-26 13:27:00 2023-10-26 15:16:00 Emergency X KIP KIRBY JOSEPH [facility] ERT [id number] [facility] 2023-10-26 13:27:00 2023-10-26 15:16:00 Emergency Kip Kirby [facility] [id number] [facility] Results Test Description Test Time Test [...] cells andvisualized paranasal air sinuses are clear. [facility] Notes Date/Time Note Provider Source 2023-10-26 15:15:18 [...] in no apparent distress, Loretta Elliott RN [facility] 2023-10-26 13:22:05 Patient arrived ambulatory c/oo of an object that fell on his head Thursday went to ER LJ which cleared him and said if the pain did not get better to go to the ER. Complaining of pain on top of his head where the object landed. [facility] 2023-10-26 13:15:[address] [facility] Emergency Department Note Patient Name: Terence Oviedo Date of : 2000 23 year old male Treatment Room: [facility] ED [facility] FERNY/JESSICA Primary Care Physician: PATIENT DOES NOT HAVE A PCP Patient Escorted by: Self [9] Mode of Arrival: Personal means [1] EMS Treatment Prior to ED Arrival: [employer] treatment: None Travel and Exposure Screening: Symptoms [...] signed by: Kip Kirby MD 10/26/23 1459 [facility]
--- NOTE | 2024-01-05 12:31 | RAD REPORT ---
Exam:Knee Right 3 View HISTORY: Right knee pain FINDINGS: No fracture or dislocation seen Post surgical changes ACL repair.. Small bony/calcific density adjacent to the anterior aspect of the proximal tibia has a sclerotic bor brendan and is chronic.
--- NOTE | 2024-01-05 12:54 | ER ---
Nurse's Notes [facility] Name: Audi Kulkarni Age: 23 yrs Sex: Male : 2000 Arrival Date: 01/05/2024 Time: 11:58 Bed 12 Private MD: Diagnosis: Right knee sprain, internal derangement of the right knee Presentation: 01/04 12:06 Chief complaint: Patient states: was dancing and hurt my right knee, heard three pops, iw happened 2 days ago. Coronavirus screen: At this time, the client does not indicate any symptoms associated with coronavirus-19. Ebola Screen: No symptoms or risks identified at this time. Risk Assessment: Do you want to hurt yourself or someone else? Patient reports no desire to harm self or others. Onset of symptoms was January 03, 2024. 12:06 Method Of Arrival: Ambulatory iw 12:06 Acuity: MARLON 4 iw 12:06 Initial Sepsis Screen: Does the patient meet any 2 criteria? No. Patient's initial iw sepsis screen is negative. Does the patient have a suspected source of infection? No. Patient's initial sepsis screen is negative. Historical: - Allergies: 12:07 Flagyl; iw 12:07 Robitussin Cough \T\ Cold CF; iw - Home Meds: 12:07 None [Active]; iw - PMHx: 12:08 Anxiety; iw - PSHx: 12:07 Adenoid excision; Tonsillectomy; torn ACL's repair; iw - Immunization history:: Adult Immunizations not up to date. - Infectious Disease History:: Denies. - Social history:: Smoking status: Patient denies any tobacco usage or history of. Screenin:16 [facility] ED Fall Risk Assessment (Adult) History of falling in the last 3 months, iw including since admission Yes- single mechanical fall (1 pt) Confusion or Disorientation No (0 pts) Intoxicated or Sedated No (0 pts) Impaired Gait Yes (1 pt) Mobility Assist Device Used No (0 pt) Altered Elimination No (0 pt) Score/Fall Risk Level 0 - 2 = Low Risk Oriented to surroundings. Abuse screen: Denies injuries from another. Nutritional screening: No deficits noted. Tuberculosis screening: No symptoms or risk factors identified. Assessment: 12:16 General: Appears in no apparent distress. Behavior is calm, cooperative. Pain: iw Complains of pain in right knee. Neuro: Level of Consciousness is awake, alert, obeys commands, Oriented to person, place, time, situation, Moves all extremities. Full function. Cardiovascular: Patient's skin is warm and dry. Respiratory: Respiratory effort is even, unlabored, Respiratory pattern is regular, symmetrical. Derm: Skin is healthy with good turgor. Musculoskeletal: Range of motion: limited in right knee. Vital Signs: 12:06 BP 149 / 86; Pulse 82; Resp 18; Temp 97.2; Pulse Ox 100% ; Weight 167.83 kg; Height 6 iw ft. 2 in. ; Pain 8/10; 12:06 Body Mass Index 47.50 (167.83 kg, 187.96 cm) iw 12:06 Pain Scale: Adult iw ED Course: 12:01 Patient arrived in ED. mr 12:03 Avila Melendez MD is Attending Physician. sp3 12:07 Triage completed. iw 12:07 Arm band placed on. iw 12:15 Patient has correct armband on for positive identification. iw 12:16 Barbara Frey, RN is Primary Nurse. iw 12:27 Knee Right 3 View XRAY In Process Unspecified. EDMS 13:43 No provider procedures requiring assistance completed. Patient did not have IV access ss during this emergency room visit. Crutch training done. Armaan wrap to right knee. Administered Medications: No medications were administered Medication: 12:16 VIS not applicable for this client. iw Outcome: 12:54 Discharge ordered by . sp3 13:43 Discharged to home with crutches, ss 13:43 Condition: good 13:43 Discharge instructions given to patient, Instructed on discharge instructions, follow up and referral plans. medication usage, crutch walking, Demonstrated understanding of instructions, follow-up care, medications, crutch walking, Prescriptions given X 1, 13:45 Patient left the ED. ss Signatures: Dispatcher [employer] EDCT RamachandranNatalie blackburn, Reg Reg mr Barbara Frey, RN RN Jenna Vasquez RN RN Avila Melendez MD MD sp3 Corrections: (The following items were deleted from the chart) 12:08 12:07 PMHx: None; iw
--- NOTE | 2024-01-05 12:54 | EDPHYS ---
Physician Documentation [facility] Name: Audi Kulkarni Age: 23 yrs Sex: Male : 2000 Arrival Date: 01/05/2024 Time: 11:58 Bed 12 Private MD: ED Physician Avila Melendez HPI: 01/04 12:49 This 23 yrs old Male presents to ER via Ambulatory with complaints of Knee Injury. sp3 12:49 23-year-old male with history of anxiety and bilateral ACL replacement in high school sp3 approximately 4 years ago now presents with right knee pain after dancing over the weekend. Patient states he can put partial pressure on it but it hurts. He denies any direct trauma but states it "gave out on him while he was dancing". No other injury reported. Review of systems otherwise negative.. Historical: - Allergies: 12:07 Flagyl; iw 12:07 Robitussin Cough \\T\\ Cold CF; iw - Home Meds: 12:07 None [Active]; iw - PMHx: 12:08 Anxiety; iw - PSHx: 12:07 Adenoid excision; Tonsillectomy; torn ACL's repair; iw - Immunization history:: Adult Immunizations not up to date. - Infectious Disease History:: Denies. - Social history:: Smoking status: Patient denies any tobacco usage or history of. ROS: 12:50 Constitutional: Negative for fever, chills, and weight loss, Eyes: Negative for injury, sp3 pain, redness, and discharge, Neck: Negative for injury, pain, and swelling, Cardiovascular: Negative for chest pain, palpitations, and edema, Respiratory: Negative for shortness of breath, cough, wheezing, and pleuritic chest pain, Abdomen/GI: Negative for abdominal pain, nausea, vomiting, diarrhea, and constipation, Back: Negative for injury and pain, Skin: Negative for injury, rash, and discoloration, Neuro: Negative for headache, weakness, numbness, tingling, and seizure, Psych: Negative for depression, anxiety, suicide ideation, homicidal ideation, and hallucinations, Allergy/Immunology: Negative for hives, rash, and allergies, Endocrine: Negative for neck swelling, polydipsia, polyuria, polyphagia, and marked weight changes, Hematologic/Lymphatic: Negative for swollen nodes, abnormal bleeding, and unusual bruising, 12:50 All other systems are negative, Exam: 12:50 Constitutional: This is a well developed, well nourished patient who is awake, alert, sp3 and in no acute distress. Head/Face: Normocephalic, atraumatic. Eyes: Pupils equal round and reactive to light, extra-ocular motions intact. Lids and lashes normal. Conjunctiva and sclera are non-icteric and not injected. Cornea within normal limits. Periorbital areas with no swelling, redness, or edema. Neck: Trachea midline, no thyromegaly or masses palpated, and no cervical lymphadenopathy. Supple, full range of motion without nuchal rigidity, or vertebral point tenderness. No Meningismus. Chest/axilla: Normal chest wall appearance and motion. Nontender with no deformity. No lesions are appreciated. Cardiovascular: Regular rate and rhythm with a normal S1 and S2. No gallops, murmurs, or rubs. Normal PMI, no JVD. No pulse deficits. Respiratory: Lungs have equal breath sounds bilaterally, clear to auscultation and percussion. No rales, rhonchi or wheezes noted. No increased work of breathing, no retractions or nasal flaring. Abdomen/GI: Soft, non-tender, with normal bowel sounds. No distension or tympany. No guarding or rebound. No evidence of tenderness throughout. Skin: Warm, dry with normal turgor. Normal color with no rashes, no lesions, and no evidence of cellulitis. Neuro: Awake and alert, GCS 15, oriented to person, place, time, and situation. Cranial nerves II-XII grossly intact. Motor strength 5/5 in all extremities. Sensory grossly intact. Cerebellar exam normal. Normal gait. Psych: Awake, alert, with orientation to person, place and time. Behavior, mood, and affect are within normal limits. 12:50 Musculoskeletal/extremity: Mild swelling of the right knee noted. No drawer laxity. Distal neurovascular exam is normal.. Vital Signs: 12:06 BP 149 / 86; Pulse 82; Resp 18; Temp 97.2; Pulse Ox 100% ; Weight 167.83 kg; Height 6 iw ft. 2 in. ; Pain 8/10; 12:06 Body Mass Index 47.50 (167.83 kg, 187.96 cm) iw 12:06 Pain Scale: Adult iw MDM: 12:13 Medical Screening Exam initiated sp3 12:52 Data reviewed: vital signs, nurses notes, radiologic studies. ED course: 23-year-old sp3 male with internal derangement of the right knee from soft tissue injury versus fracture. X-rays negative for fracture. We will place patient in immobilization device, crutches and follow-up with orthopedics along with NSAID prescription.. 01/04 12:13 Order name: Knee Right 3 View XRAY; Complete Time: 12:36 sp3 01/04 12:57 Order name: Crutches; Complete Time: 13:43 sp3 01/04 13:43 Order name: Armaan wrap-joint; Complete Time: 13:43 ss Administered Medications: No medications were administered Disposition Summary: 01/05/24 12:54 Discharge Ordered Notes: Location: Home sp3 Condition: Stable sp3 Diagnosis - Right knee sprain, internal derangement of the right knee sp3 Followup: sp3 - With: Private Physician - When: Upon discharge from the Emergency Department - Reason: Recheck today's complaints Discharge Instructions: - Discharge Summary Sheet sp3 - How to Use a Knee Immobilizer sp3 - Acute Knee Pain, Adult sp3 Forms: - Work release form ss - Medication Reconciliation Form sp3 - Antibiotic Education sp3 - Prescription Opioid Use sp3 - Patient Portal Instructions sp3 - Leadership Thank You Letter sp3 Prescriptions: - Crutches - One pair of Adult crutches; ; Refills: 0, Product Selection Permitted sp3 - Diclofenac Sodium 75 mg Oral Tablet Sustained Release - take 1 tablet ORAL route 2 times per day; 30 tablet; Refills: 0, Product sp3 Selection Permitted Signatures: Dispatcher [employer] Barbara Capone RN RN Jenna Vasquez RN RN ss Avila Melendez MD MD sp3 Corrections: (The following items were deleted from the chart) 12:08 12:07 PMHx: None; [facility] 13:43 12:57 Knee Immobilizer ordered. sp3 ss
[2024-01-05 14:14] VITALS: BP 149/86; TEMP 97.2; O2SAT 100
== END 2024-01-05 13:45 | disposition home or self-care (01) ==
LOC: ER 11:58
DX: S83.91XA Sprain of unspecified site of right knee, initial encounter (principal); M23.91 Unspecified internal derangement of right knee
CPT/HCPCS: 99283